=== PATIENT | female | born 1980 | race Caucasian/White ===

== ENCOUNTER 2017-10-13 20:02 | Emergency (ER) | payer OTHER ==
[~2017-10-13] VITALS: Ht 160 cm; Wt 81.7 kg
[~2017-10-13 20:02] MED LIST: CIPR250 PO; CYSTEX; Cipro500 MG PO; HYDACE5 PO; IBUP800 PO; META800 PO; METR500 PO; NAPR550 PO; ONDA8 PO; OXYACE5T PO; PHENA100 PO; PHENA200 PO; Pyridium100 MG PO; RXNAPNA550 PO; SULTRIDS PO
[2017-10-13] MEDS ORDERED: IBUP600 PO (22:30)
[2017-10-13] MEDS ORDERED: Percocet 5-3251 EACH PO (22:30)
[2017-10-13] MEDS ORDERED: COLCHICINE0.6 MG PO (22:30)
== END 2017-10-13 22:44 | disposition home or self-care (01) ==
LOC: ER 20:02
DX: M25.572 Pain in left ankle and joints of left foot (principal); Z87.891 Personal history of nicotine dependence
CPT/HCPCS: 36415; 73630; 84550; 99283

== ENCOUNTER 2020-05-28 09:21 | Emergency (ER) | payer OTHER ==
[~2020-05-28] VITALS: Ht 162.6 cm; Wt 97.5 kg
[~2020-05-28 09:21] MED LIST changes: +COLCHICINE0.6 MG PO; +IBUP600 PO; +Percocet 5-3251 EACH PO
[2020-05-28 09:42] LABS: Source, Urine Clean Catch
[2020-05-28 09:46] LABS: Blood, Urine 3+ (Neg); Glucose Qualitative, Urine Neg (Neg); Ketones, Urine 1+ (Neg); Leukocyte Esterase, Urine 3+ (Neg); Nitrite, Urine Pos (Neg); Protein, Urine 3+ (Neg); Urobilinogen, Urine 4+ (Normal)
[2020-05-28 09:56] LABS: Appearance, Urine Cloudy (Clear); Bilirubin, Urine 1+ (Neg); Color, Urine Amber (P-Yellow)
[2020-05-28 09:57] LABS: White Blood Cells, Urine TNTC /hpf (0-5)
[2020-05-28 09:58] LABS: Bacteria Many /hpf; Squamous Epithelial Cells Mod /hpf (Few); Transitional Epithelial Cells Few /hpf (0-Rare)
[2020-05-28] MEDS ORDERED: Pyridium200 MG PO (10:14)
[2020-05-28] MEDS ORDERED: KEFLEX500 MG PO (10:14)
[2020-05-28] MEDS ORDERED: LEVOFLOXACIN500 M1 PO (10:18)
== END 2020-05-28 10:32 | disposition home or self-care (01) ==
LOC: ER 09:21
PROVIDERS: Physician Assistant
DX: N39.0 Urinary tract infection, site not specified (principal); Z79.899 Other long term (current) drug therapy; Z87.891 Personal history of nicotine dependence
CPT/HCPCS: 81001; 81025; 87077; 87086; 87186; 99283

== ENCOUNTER 2021-09-06 18:30 | Emergency (ER) | payer OTHER ==
[~2021-09-06] VITALS: Ht 160 cm; Wt 104.3 kg
[~2021-09-06 18:30] MED LIST changes: +Bactrim Ds Tab1 EACH PO; +KEFLEX500 MG PO; +LEVOFLOXACIN500 M1 PO; +Macrobid 100 M100 MG PO; +Pyridium200 MG PO
[2021-09-06 20:41] LABS: Source, Urine Clean Catch
[2021-09-06 20:50] LABS: Appearance, Urine Turbid (Clear); Bilirubin, Urine Neg (Neg); Blood, Urine 5+ (Neg); Color, Urine Red (P-Yellow); Glucose Qualitative, Urine Neg (Neg); Ketones, Urine 3+ (Neg); Leukocyte Esterase, Urine 3+ (Neg); Nitrite, Urine Neg (Neg); Protein, Urine 4+ (Neg); Specific Gravity, Urine 1.015 (1.003-1.022); Urobilinogen, Urine NORM (Normal)
[2021-09-06 21:06] LABS: Amorphous Mod (0-Heavy); Bacteria Mod /hpf; Red Blood Cells, Urine TNTC /hpf (0-2); Squamous Epithelial Cells Mod /hpf (Few); White Blood Cells, Urine TNTC /hpf (0-5)
[2021-09-06] MEDS ORDERED: CEPH500 PO (23:39)
[2021-09-06] MEDS ORDERED: Pyridium100 MG PO (23:39)
== END 2021-09-06 23:58 | disposition home or self-care (01) ==
LOC: ER 18:30
PROVIDERS: Student in an Organized Health Care Education/Training Program
DX: N39.0 Urinary tract infection, site not specified (principal); M10.9 Gout, unspecified
CPT/HCPCS: 81001; 87077; 87086; 87186; 99283; A9270

== ENCOUNTER → 2021-11-28 | Outpatient (CLI) | payer OTHER ==
[~2021-11-28] MED LIST changes: +CEPH500 PO
== END | disposition home or self-care (01) ==
LOC: LAB SHORT 12:20 → LAB 12:20
DX: N39.0 Urinary tract infection, site not specified (principal)
CPT/HCPCS: 87077; 87086; 87186

== ENCOUNTER → 2022-02-27 | Outpatient (CLI) | payer OTHER | END | disposition home or self-care (01) | LOC: LAB SHORT 10:02 → LAB 10:02 | DX: N39.0 Urinary tract infection, site not specified (principal) | CPT/HCPCS: 87077; 87086; 87186 ==

== ENCOUNTER → 2024-01-14 | Outpatient (CLI) | payer OTHER | END | disposition home or self-care (01) | LOC: LAB 16:44 → LAB SHORT 16:44 | DX: N39.0 Urinary tract infection, site not specified (principal) | CPT/HCPCS: 87086 ==

== ENCOUNTER → 2024-09-10 | Outpatient (CLI) | payer OTHER | LOC: LAB 16:14 → LAB SHORT 16:14 | DX: N39.0 Urinary tract infection, site not specified (principal) | CPT/HCPCS: 87086 ==